=== PATIENT | male | born 1960 | race Caucasian/White ===

== ENCOUNTER → 2019-05-22 11:34 | Outpatient (CLI) | payer OTHER, SELFPAY ==
[2019-05-22 10:52] VITALS: BMI 24.5
--- NOTE | 2019-05-22 11:41 | RAD_ITS ---
STUDY: X-RAY - LEFT HAND, ATTENTION MIDDLE FINGER REASON FOR EXAM: Ganglion cyst just below nail bed on middle finger. TECHNIQUE: 3 view(s) of the finger were obtained. COMPARISON: None. FINDINGS: Normal metacarpal head. Normal metacarpophalangeal joint. Normal proximal phalanx. Normal middle phalanx. Normal distal phalanx. Normal proximal interphalangeal joint. There is a dorsal osteophyte of the distal phalanx without joint space narrowing of the distal interphalangeal joint. RAD/Finger(s) Min 2 Views IMPRESSION: Dorsal osteophyte of the distal phalanx. Otherwise, unremarkable x-ray examination of the left middle finger. Electronically Signed: Johann Vogt MD at 13:19 EDT Tel , Service support ,
== END ==
PROVIDERS: Family Provider Family Medicine; PCP Family Medicine; Referring Provider Surgery; Visit Provider Surgery
DX: M67.442 Ganglion, left hand (principal); L60.8 Other nail disorders
CPT/HCPCS: 73140

== ENCOUNTER → 2022-05-19 | Outpatient (CLI) | payer OTHER, SELFPAY ==
[2022-05-19 11:50] LABS: Erythrocyte Sedimentation Rate 12 mm/hr (0-20)
[2022-05-19 11:52] LABS: Absolute Neutrophil Count 2.5 X10^3/uL (2.0-7.7); Basophil# 0.03 X10^3/uL; Basophil% 0.6 % (0-1); Eosinophil# 0.61 X10^3/uL; Eosinophils% 12.2 % (0-5); Hematocrit 40.8 % (40-54); Hemoglobin 13.3 g/dL (13.0-16.5); Lymphocyte % 30.1 % (19-41); Mean Corp Hgb Conc 32.6 g/dL (32-36); Mean Corpuscular Hgb 30.9 pg (27.0-32.0); Mean Corpuscular Volume 94.9 fL (80-94); Mean Platelet Vol. 8.9 fl (6.2-12.0); Monocyte# 0.31 X10^3/uL; Monocyte% 6.2 % (0-10); NRBC Flagged by Analyzer 0 % (0-5); Neutrophil # 2.53 X10^3/uL (2.7-7.7); Neutrophil % 50.7 % (47-70); Platelet Count 250 K/mm3 (150-450); RBC Distribution Width CV 12.9 % (11.6-14.6); RBC Distribution Width SD 44.6 fl (35.1-43.9)
[2022-05-19 12:21] LABS: CRP < 2.90 mg/L (0.0-3.0); LDH 162 U/L (87-241)
[2022-05-20 13:07] LABS: Anti-Centromere B Ab <0.2 AI (0.0-0.9); Anti-Chromatin <0.2 AI (0.0-0.9); Anti-Jo <0.2 AI (0.0-0.9); Anti-Scleroderma-70 AB <0.2 AI (0.0-0.9); RNP Ab <0.2 AI (0.0-0.9); SJOGREN'S Anti-SS-A test < 0.2 AI (0.0-0.9); SJOGREN'S Anti-SS-B test < 0.2 AI (0.0-0.9); Smith Ab <0.2 AI (0.0-0.9)
[2022-05-20 15:08] LABS: Endomysial Antibody IgA Negative (Negative)
[2022-05-21 16:37] LABS: Immunoglobulin A 255 mg/dL (61-437); t-Transglutaminase IgA <2 U/mL (0-3)
[2022-05-22 16:38] LABS: Anti-dsDNA Ab <1 IU/mL (0-9)
[2022-05-26 13:08] LABS: Albumin 4.3 g/dL (2.9-4.4); Alpha-1-Globulins 0.2 g/dL (0.0-0.4); Alpha-2-Globulins 0.8 g/dL (0.4-1.0); Cytoplasmic Ab (C-ANCA) <1:20 titer (Neg:<1:20); Gamma Globulin 1.3 g/dL (0.4-1.8); Immunoglobulin A 254 mg/dL (61-437); Immunoglobulin E 15 IU/mL (6-495); Immunoglobulin G 1251 mg/dL (603-1613); Immunoglobulin M 65 mg/dL (20-172); PROEL- TOTAL PROTEIN 7.6 g/dL (6.0-8.5)
[2022-05-26 16:09] LABS: Cancer Antigen 125 2303 10.9 U/mL (Not Estab.); Carbohydrate Ag 19-9 2261 20 U/mL (0-35); Carcinoembryonic Antigen 2.6 ng/mL (0.0-4.7); Gastrin, Serum 22 pg/mL (0-115); Perinuclear Ab (P-ANCA) <1:20 titer (Neg:<1:20)
== END | disposition home or self-care (01) ==
LOC: LAB 11:10
PROVIDERS: PCP Family Medicine; Referring Provider Internal Medicine Gastroenterology; Visit Provider Internal Medicine Gastroenterology
DX: R14.0 Abdominal distension (gaseous) (principal); R68.81 Early satiety
CPT/HCPCS: 36415; 82378; 82784; 82785; 82941; 83516; 83615; 84165; 85025; 85652; 86140; 86225; 86235; 86255; 86256; 86301; 86304; 86334

== ENCOUNTER 2022-08-12 05:20 | Day surgery (SDC) | payer OTHER, SELFPAY ==
[2022-08-12 05:45] VITALS: BP 129/69; PULSE 70; RESP 18; TEMP 36.2; O2SAT 98; BMI 25.2
[2022-08-12] MEDS: Lactated Ringers 1,000 ML 15 ML IV (05:56)
[2022-08-12 06:20] LABS: Bedside Glucose 119 mg/dL (74-106)
--- NOTE | 2022-08-12 06:30 | EGD_PTH ---
PATIENT: JUNIOR PERDUE LOC: EN U#:[id number] AGE/SX: 62/M ROOM: RE08/12/[address]: Dr. Moi Devlin DO : 1960 BED: DIS: 08/12/2022 SPEC #: [id number] RECD: 08/12/22 11:03 STATUS: GILBERTO ASHU #: [id number] FILIPE: 08/12/22 06:[address]: Moi Devlin DEPT: SURGICAL PATHOLOGY RECD BY: Rupal Wagner ENTERED: 08/12/22 12:48 SP TYPE: EGD BIOPSY OT DR: Dr. Dakota George MD Tissues: A - Duodenum, NOS B - Gastric mucous membrane C - Esophagus, NOS D - Esophagus, NOS E - Ileum, NOS F - COLON BIOPSY Procedures: Special Stain Group II Surgery Specimen Level IV Alcian Blue/PAS (control) HEADER OPERATION: Colonoscopy with biopsies, EGD with biopsies ([facility]) PRE-OP DIAGNOSIS: GERD, bloating, early satiety TISSUE SUBMITTED: A ? Duodenum biopsy, B ? Gastric body biopsy, C ? Distal esophagus biopsy, D ? Random esophagus biopsy, E ? Terminal ileum biopsy, F ? Random colon biopsy MICROSCOPIC DIAGNOSIS A. Duodenum, biopsy: No pathologic change. B. Gastric body, biopsy: Chronic gastritis. See comment. C. Distal esophagus, biopsy: Fragments of gastric mucosa with chronic inflammation. No evidence of goblet cell metaplasia. See comment. D. Esophagus, random biopsy: No pathologic change. E. Terminal ileum, biopsy: No pathologic change. F. Colon, random biopsy: No pathologic change. AM:silvia 08/15/2022 COMMENT B. The results of immunohistochemistry for Helicobacter pylori will be reported separately ([id number]). C. Alcian blue/PAS stain with matched control supports the above diagnosis. MICROSCOPIC DESCRIPTION Slides are reviewed. GROSS DESCRIPTION A - Received in fixative is one container labeled with the patient's name and designated duodenum biopsy. The specimen consists of one irregular fragment of light caldwell soft tissue that measures 0.5 x 0.3 x 0.1 cm. The specimen is totally submitted in one cassette. B - Received in fixative is one container labeled with the patient's name and designated gastric body biopsy. The specimen consists of two irregular fragments of light caldwell soft tissue that in aggregate measure 0.6 x 0.2 x 0.1 cm. The specimen is totally submitted in one cassette. C - Received in fixative is one container labeled with the patient's name and designated distal esophagus. The specimen consists of multiple irregular fragments of light caldwell soft tissue that in aggregate measure 1 x 0.3 x 0.1 cm. The specimen is totally submitted in one cassette. D - Received in fixative is one container labeled with the patient's name and designated random esophagus biopsy. The specimen consists of two irregular fragments of light caldwell soft tissue that in aggregate measure 0.5 x 0.5 x <0.1 cm. The specimen is totally submitted in one cassette. E - Received in fixative is one container labeled with the patient's name and designated terminal ileum biopsy. The specimen consists of one irregular fragment of light caldwell soft tissue that measures 0.6 x 0.5 x 0.1 cm. The specimen is totally submitted in one cassette. F - Received in fixative is one container labeled with the patient's name and designated random colon biopsy. The specimen consists of one irregular fragment of light caldwell soft tissue that measures 0.6 x 0.3 x 0.1 cm. The specimen is totally submitted in one cassette. / AM:silvia 08/12/2022 TC:3 CPT: 78792 x6, 17289
--- NOTE | 2022-08-12 06:30 | IMM_PTH ---
PATIENT: JUNIOR PERDUE LOC: EN U#:[id number] AGE/SX: 62/M ROOM: RE08/12/[address]: Dr. Moi Devlin DO : 1960 BED: DIS: 08/12/2022 SPEC #: [id number] RECD: 08/12/22 13:09 STATUS: GILBERTO REQ #: [id number] FILIPE: 08/12/22 06:[address]: Moi Devlni DEPT: IMMUNOHISTOCHEMISTRY RECD BY: May Hutchison ENTERED: 08/12/22 13:10 SP TYPE: IMMUNO OTHR DR: Dr. Dakota George MD Tissues: B - Stomach, NOS Procedures: H Pylori (initial) PHYSICIAN & INSTITUTION [place] [address] SPECIMEN INFORMATION: Tissue Source: B ? Gastric body biopsy Clinical Info: GERD, bloating, early satiety Specimen Number: [id number] CPT code: 24809 METHODOLOGY: Deparaffinized sections of prefer/formalin-fixed tissue or PAP/DQ stained slides are incubated with monoclonal/polyclonal antibodies/oligonucleotide probes. Localization is made via biotin free immunoperoxidase method. Appropriate controls are performed and reacted as expected. Results on target cell population are indicated in the following table: RESULTS: ANTIBODY / CLONE RESULT Block B H Pylori (polyclonal) negative These tests were developed and their performance characteristics determined by [facility]. They may not have been cleared or approved by the U.S. Food and Drug Administration. The FDA has determined that such clearance or approval is not necessary. The above immunohistochemical/dualISH markers are ordered and reviewed by the Pathologist. INTERPRETATION: B. Gastric body, biopsy: Negative for Helicobacter pylori organisms. AM:silvia 08/15/2022
--- NOTE | 2022-08-12 07:43 | HP.PCM_ITS ---
History and Physical Date of Admission: 08/12/22 JUNIOR PERDUE, is a 62 M who presents to the office today for Initial consult. Junior established with this clinic 05.19.22. He has difficulty with bloating and early satiety with reduced intake without weight loss for the last several months. Started probiotics several months ago and feels this was somewhat helpful. 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 ? PMH DMII (A1c 7.3), hyperlipidemia, anemia, asthma, eczema, elevated Eosinophils 8.7. Dupixent to address asthma, psoriasis and allergies. Colonoscopy for screening purposes noting diverticulosis. ROS Const Constitutional: No anorexia, fatigue, fever(s), weight change or sleep problems Eyes Eyes: No change in vision ENT ENT: No abnormal hearing, difficulty swallowing, mouth lesions, tongue swelling or throat swelling Resp Respiratory: No cough or shortness of breath Cardio Cardiology: No chest pain at rest, chest pain with exertion, shortness of breath or dyspnea on exertion Gastro GI: No difficulty swallowing Genitourinary Male: No difficulty urinating or burning urination Musc Musculoskeletal: No joint pain, joint swelling, muscle weakness or decreased muscle mass Skin Skin: No hair loss in leg, yellowing of the eye, itchy eyes, rash, skin ulcer or skin swelling Neuro Neurology: No abnormal hearing, abnormal movements, confusion, unsteady gait/balance or memory loss Psych Psychiatric: No anxiety, No confusion and No memory loss Endo Endocrine: No fatigue or weight change Aller/Imm Allergy/Immunologic: No itchy eyes, throat swelling or tongue swelling Mikie/Lymp Hematologic/Lymphatic: No easy bleeding, easy bruising or enlarged lymph nodes Exam Const General: cooperative and comfortable Nutritional Appearance: average body habitus and well nourished [facility] Head: normal to inspection Ears: hearing grossly normal bilaterally Nose: external nose normal Face and sinus: normal facial exam Mouth: oral mucosae normal Throat: posterior oropharynx normal Eyes General: appearance normal, both eyes and all related structures Neck Neck: normal visual inspection Chest Chest palpation & inspection: normal inspection of the chest and normal palpation of entire chest wall Resp Effort & Inspection: normal respiratory effort Auscultation: Bilateral: Clear to Auscultation Cardio Palpation: normal PMI Rate: regular rate Rhythm: regular rhythm GI Inspection: normal to inspection Auscultation: normal bowel sounds Percussion: normal to percussion Palpation: no hepatosplenomegaly Skin General: no rashes or lesions noted Neuro General: patient alert Extrem General: normal to inspection Psych Affect: normal affect Quality Reporting Tobacco Screening ([facility]) Smoking Status: Never smoker Assessment and Plan Assessment and Plan (1) Bloating: ?Status:?Chronic ?Plan: The differential diagnosis for his bloating does include eosinophilic gastroenteritis, eosinophilic gastritis, gastroparesis secondary to longstanding diabetes, celiac disease.? He will undergo an upper endoscopy evaluate his upper GI tract and biopsies of his esophagus, stomach and small bowel.? We had ordered a CBC with differential and his eosinophil count is despite being on Dupixent therapy.? Once I have his other biochemical profile we will give him a call so we can discuss the results and come up with a all comprehensive plan. (2) Early satiety: ?Status:?Chronic ? ? ? Orders: Orders CRP Today R14.0 - Abdominal distension (gaseous), R68.81 - Early satiety ? LDH Today R14.0 - Abdominal distension (gaseous), R68.81 - Early satiety ? CBC W/Diff, Automated Today R14.0 - Abdominal distension (gaseous), R68.81 - Early satiety ? Erythrocyte Sed Rate Today R14.0 - Abdominal distension (gaseous), R68.81 - Early satiety ? VIVI Comprehensive Panel Today R14.0 - Abdominal distension (gaseous), R68.81 - Early satiety ? ANCA Today R14.0 - Abdominal distension (gaseous), R68.81 - Early satiety ? CA 125 Serial Monitor Today R14.0 - Abdominal distension (gaseous), R68.81 - Early satiety ? CA 19-9 Serial Monitor Today R14.0 - Abdominal distension (gaseous), R68.81 - Early satiety ? Carcinoembryonic Antigen Today R14.0 - Abdominal distension (gaseous), R68.81 - Early satiety ? Celiac Disease Profile Today R14.0 - Abdominal distension (gaseous), R68.81 - Early satiety ? Immunoglobulins G/A/M/E Today R14.0 - Abdominal distension (gaseous), R68.81 - Early satiety ? Gastrin, Serum Today R14.0 - Abdominal distension (gaseous), R68.81 - Early satiety ? CONNER + Protein Elect, Serum Today R14.0 - Abdominal distension (gaseous), R68.81 - Early satiety ? I have examined the patient and the H&P has been reviewed. There are no clinical changes since date of exam.
--- NOTE | 2022-08-12 08:18 | OP.EGD_ITS ---
Patient Name: Martin Colindres Procedure Date: 08/12/2022 7:41 AM Date of : 1960 Age: 62 Procedure: Upper GI endoscopy Indications: Epigastric abdominal pain, Functional Dyspepsia, Heartburn Providers: Moi Devlin DO Referring MD: Dakota George Md Medicines: Monitored Anesthesia Care Patient Profile: This is a 62 year old male. Refer to note in patient chart for documentation of history and physical. Patient has symptoms of chronic abdominal cramping, chronic abdominal distention, chronic epigastric abdominal pain and chronic heartburn. Complications: No immediate complications. Procedure: Pre-Anesthesia Assessment: - Prior to the procedure, a History and Physical was performed, and patient medications and allergies were reviewed. The risks and benefits of the procedure and the sedation options and risks were discussed with the patient. All questions were answered and informed consent was obtained. Patient identification and proposed procedure were verified by the physician in the pre-procedure area. Mental Status Examination: alert and oriented. Airway Examination: normal oropharyngeal airway and neck mobility. Respiratory Examination: clear to auscultation. CV Examination: normal. Prophylactic Antibiotics: The patient does not require prophylactic antibiotics. Prior Anticoagulants: The patient has taken no previous anticoagulant or antiplatelet agents. ASA Grade Assessment: II - A patient with mild systemic disease. After reviewing the risks and benefits, the patient was deemed in satisfactory condition to undergo the procedure. The anesthesia plan was to use moderate sedation / analgesia (conscious sedation). Immediately prior to administration of medications, the patient was re-assessed for adequacy to receive sedatives. The heart rate, respiratory rate, oxygen saturations, blood pressure, adequacy of pulmonary ventilation, and response to care were monitored throughout the procedure. The physical status of the patient was re-assessed after the procedure. After obtaining informed consent, the endoscope was passed under direct vision. Throughout the procedure, the patient's blood pressure, pulse, and oxygen saturations were monitored continuously. The Colonoscope was introduced through the mouth, and advanced to the second part of duodenum. The upper GI endoscopy was accomplished without difficulty. The patient tolerated the procedure well. Scope In: 7:51:40 AM Scope Out: 7:57:16 AM Total Procedure Duration Time 0 hours 5 minutes 36 seconds Findings: Mucosal changes including ringed esophagus and small-caliber esophagus were found in the middle third of the esophagus and in the lower third of the esophagus. Biopsies were obtained from the proximal and distal esophagus with cold forceps for histology of suspected eosinophilic esophagitis. Verification of patient identification for the specimen was done. Estimated blood loss was minimal. LA Grade A (one or more mucosal breaks less than 5 mm, not extending between tops of 2 mucosal folds) esophagitis with no bleeding was found 38 to 40 cm from the incisors. Biopsies were taken with a cold forceps for histology. Verification of patient identification for the specimen was done. Estimated blood loss was minimal. A medium-sized hiatal hernia was present. Patchy mildly erythematous mucosa without bleeding was found in the gastric body. Biopsies were taken with a cold forceps for histology. Verification of patient identification for the specimen was done. Estimated blood loss was minimal. No gross lesions were noted in the second portion of the duodenum. Biopsies were taken with a cold forceps for histology. Verification of patient identification for the specimen was done. Estimated blood loss was minimal. Impression: - Esophageal mucosal changes consistent with eosinophilic esophagitis. Biopsied. - LA Grade A reflux esophagitis. Biopsied. - Medium-sized hiatal hernia. - Erythematous mucosa in the gastric body. Biopsied. - No gross lesions in the second portion of the duodenum. Biopsied. Recommendation: - Discharge patient to home. - Resume previous diet. - Continue present medications. - Await pathology results. Procedure Code(s): --- Professional --- 98962, Esophagogastroduodenoscopy, flexible, transoral; with biopsy, single or multiple CPT copyright 2017 [employer]. All rights reserved. The codes documented in this report are preliminary and upon remote medical coder review may be revised to meet current compliance requirements. Moi Devlin DO 08/12/2022 8:17:51 AM This report has been signed electronically. Number of Addenda: 0 Note Initiated On: 08/12/2022 7:41 AM
--- NOTE | 2022-08-12 08:18 | OP.CCLET_ITS ---
08/12/2022 Dakota George Md Re : Upper GI endoscopy procedure for Martin Valler Ariel This procedure was performed on Friday, August 12, 2022. My impressions and recommendations are as follows: Impressions : - Esophageal mucosal changes consistent with eosinophilic esophagitis. Biopsied. - LA Grade A reflux esophagitis. Biopsied. - Medium-sized hiatal hernia. - Erythematous mucosa in the gastric body. Biopsied. - No gross lesions in the second portion of the duodenum. Biopsied. Recommendations : - Discharge patient to home. - Resume previous diet. - Continue present medications. - Await pathology results. My findings are described in the full procedure note, which is enclosed. If I can be of further assistance, please feel free to contact me at . Sincerely, Moi Devlin, 08/12/2022 8:17:51 AM This report has been signed electronically.
[2022-08-12 08:20] VITALS: BP 129/69; BP 94/66; PULSE 60; RESP 14; TEMP 36.6; O2SAT 100
--- NOTE | 2022-08-12 08:20 | OP.COLON_ITS ---
Patient Name: Martin Colindres Procedure Date: 08/12/2022 7:57 AM Date of : 1960 Age: 62 Procedure: Colonoscopy Indications: Screening for colorectal malignant neoplasm Providers: Moi Devlin DO Referring MD: Dakota George Md Medicines: Monitored Anesthesia Care Patient Profile: This is a 62 year old male. Refer to note in patient chart for documentation of history and physical. Patient has symptoms of chronic abdominal cramping, chronic abdominal distention, chronic epigastric abdominal pain and chronic heartburn. Last Colonoscopy: date unknown. Unable to locate last colonoscopy report. Complications: No immediate complications. Procedure: Pre-Anesthesia Assessment: - Prior to the procedure, a History and Physical was performed, and patient medications and allergies were reviewed. The risks and benefits of the procedure and the sedation options and risks were discussed with the patient. All questions were answered and informed consent was obtained. Patient identification and proposed procedure were verified by the physician in the pre-procedure area. Mental Status Examination: alert and oriented. Airway Examination: normal oropharyngeal airway and neck mobility. Respiratory Examination: clear to auscultation. CV Examination: normal. Prophylactic Antibiotics: The patient does not require prophylactic antibiotics. Prior Anticoagulants: The patient has taken no previous anticoagulant or antiplatelet agents. ASA Grade Assessment: II - A patient with mild systemic disease. After reviewing the risks and benefits, the patient was deemed in satisfactory condition to undergo the procedure. The anesthesia plan was to use moderate sedation / analgesia (conscious sedation). Immediately prior to administration of medications, the patient was re-assessed for adequacy to receive sedatives. The heart rate, respiratory rate, oxygen saturations, blood pressure, adequacy of pulmonary ventilation, and response to care were monitored throughout the procedure. The physical status of the patient was re-assessed after the procedure. After I obtained informed consent, the scope was passed under direct vision. Throughout the procedure, the patient's blood pressure, pulse, and oxygen saturations were monitored continuously. The Colonoscope was introduced through the anus and advanced to the terminal ileum. The terminal ileum, ileocecal valve, appendiceal orifice, and rectum were photographed. Scope In: 8:00:02 AM Scope Withdrawal Time 0 hours 6 minutes 55 seconds Scope Out: 8:13:10 AM Total Procedure Duration Time 0 hours 13 minutes 8 seconds Findings: The perianal and digital rectal examinations were normal. Many small and large-mouthed diverticula were found in the recto-sigmoid colon, sigmoid colon, descending colon and splenic flexure. An area of mildly congested mucosa was found in the sigmoid colon, at the splenic flexure and in the ascending colon. Biopsies were taken with a cold forceps for histology. Verification of patient identification for the specimen was done. Estimated blood loss was minimal. The terminal ileum appeared normal. Biopsies were taken with a cold forceps for histology. Verification of patient identification for the specimen was done. Estimated blood loss was minimal. There was significant spasm in the recto-sigmoid colon, in the sigmoid colon and in the descending colon. Impression: - Diverticulosis in the recto-sigmoid colon, in the sigmoid colon, in the descending colon and at the splenic flexure. - Congested mucosa in the sigmoid colon, at the splenic flexure and in the ascending colon. Biopsied. - The examined portion of the ileum was normal. Biopsied. - Significant colonic spasm consistent with irritable bowel syndrome. Recommendation: - Discharge patient to home. - Resume previous diet. - Continue present medications. - Await pathology results. - Repeat colonoscopy in 5 years for surveillance. Procedure Code(s): --- Professional --- 60438, Colonoscopy, flexible; with biopsy, single or multiple CPT copyright 2017 [employer]. All rights reserved. The codes documented in this report are preliminary and upon human resources compliance manager review may be revised to meet current compliance requirements. Moi Devlin DO 08/12/2022 8:20:15 AM This report has been signed electronically. Number of Addenda: 0 Note Initiated On: 08/12/2022 7:57 AM
--- NOTE | 2022-08-12 08:20 | OP.CCLET_ITS ---
08/12/2022 Dakota George Md Re : Colonoscopy procedure for Martin Colindres Dear Ariel This procedure was performed on Friday, August 12, 2022. My impressions and recommendations are as follows: Impressions : - Diverticulosis in the recto-sigmoid colon, in the sigmoid colon, in the descending colon and at the splenic flexure. - Congested mucosa in the sigmoid colon, at the splenic flexure and in the ascending colon. Biopsied. - The examined portion of the ileum was normal. Biopsied. - Significant colonic spasm consistent with irritable bowel syndrome. Recommendations : - Discharge patient to home. - Resume previous diet. - Continue present medications. - Await pathology results. - Repeat colonoscopy in 5 years for surveillance. My findings are described in the full procedure note, which is enclosed. If I can be of further assistance, please feel free to contact me at . Sincerely, Moi Devlin, 08/12/2022 8:20:15 AM This report has been signed electronically.
[2022-08-12 08:25] VITALS: BP 108/74; BP 129/69; PULSE 62; RESP 14; O2SAT 100
[2022-08-12 08:30] VITALS: BP 111/66; BP 129/69; PULSE 61; RESP 14; O2SAT 100
[2022-08-12 08:35] VITALS: BP 111/72; BP 129/69; PULSE 57; RESP 14; TEMP 37.4; O2SAT 100
[2022-08-12 09:12] VITALS: BP 129/69
== END 2022-08-12 09:17 | disposition home or self-care (01) ==
LOC: EN 05:21 → AC 05:21
PROVIDERS: PCP Family Medicine; Referring Provider Family Medicine; Visit Provider Internal Medicine Gastroenterology
PROC: 0DJD8ZZ Inspection of Lower Intestinal Tract, Via Natural or Artificial Opening Endoscopic (ICD-10-PCS; CPT 45378; principal; 2022-08-12 06:25)
DX: Z12.11 Encounter for screening for malignant neoplasm of colon (principal); K29.50 Unspecified chronic gastritis without bleeding; K44.9 Diaphragmatic hernia without obstruction or gangrene; K21.00 Gastro-esophageal reflux disease with esophagitis, without bleeding; K58.9 Irritable bowel syndrome, unspecified; K57.30 Diverticulosis of large intestine without perforation or abscess without bleeding; Z79.82 Long term (current) use of aspirin; Z79.84 Long term (current) use of oral hypoglycemic drugs; Z79.899 Other long term (current) drug therapy; E78.5 Hyperlipidemia, unspecified
CPT/HCPCS: 45380; 43239; 82962; 88305; 88313; 88342; J7120; J2405

== ENCOUNTER → 2022-09-01 | Outpatient (CLI) | payer OTHER, SELFPAY ==
--- NOTE | 2022-09-01 09:30 | NM_ITS ---
CLINICAL: 62-year-old male with history of abdominal bloating. SEMI-SOLID PHASE 99m Tc SULFUR COLLOID GASTRIC EMPTYING STUDY COMPARISON: None available FINDINGS: The patient was administered 1.1 mCi of 99m Tc sulfur colloid mixed with oatmeal and consumed per os. Image acquisitions in the anterior-posterior projections were obtained for 60 minutes. There is prompt visualization of the stomach. There is no gastroesophageal reflux identified. The T ? raw data emptying was calculated to be 22.68 minutes, (Normal: 12-56 minutes). NM/Gastric Emptying Study IMPRESSION: 1. NORMAL 99m Tc sulfur colloid semi-solid phase (oatmeal) gastric emptying imaging examination. A. There is normal and preserved semi-solid phase gastric emptying compared to normal controls. (Mikael et al, J Nucl Med Tech 38: 186, 2010). Electronically Signed: Enrique Delgado, at 16:54 EST ,
== END | disposition home or self-care (01) ==
LOC: NM 09:29
PROVIDERS: PCP Family Medicine; Referring Provider Internal Medicine Gastroenterology; Visit Provider Internal Medicine Gastroenterology
DX: R68.81 Early satiety (principal); R14.0 Abdominal distension (gaseous)
CPT/HCPCS: 78264; A9541